=== PATIENT | female | born 1970 | race Caucasian/White ===

== ENCOUNTER 2024-11-06 07:53 | Emergency (ER) | payer OTHER ==
[~2024-11-06] VITALS: Ht 165.1 cm; Wt 95.0 kg
[2024-11-06 08:00] VITALS: O2SAT 99
[2024-11-06] MEDS: CYCLOBENZAPRINE 10MG TABLET PO ONE (09:09)
[2024-11-06 10:20] VITALS: BP 119/56; PULSE 65; RESP 18; TEMP 36.7; O2SAT 99
[2024-11-06] MEDS ORDERED: CYCL10TA21 MT (10:26)
[2024-11-08] MEDS ORDERED: SERT-112 PO (01:53)
[2024-11-08] MEDS ORDERED: BUPR-46 PO (01:53)
[2024-11-08] MEDS ORDERED: ROSUVASTATIN PO (01:53)
[2024-11-08] MEDS ORDERED: OLME20TA68 PO (01:53)
== END 2024-11-06 10:45 | disposition home or self-care (01) ==
LOC: ER 07:53
DX: M79.631 Pain in right forearm (principal); E78.00 Pure hypercholesterolemia, unspecified; I10 Essential (primary) hypertension; Z88.0 Allergy status to penicillin; Z79.899 Other long term (current) drug therapy
CPT/HCPCS: 73080; 73090; 93971; 99284; A4565

== ENCOUNTER 2025-04-08 20:50 | Emergency (ER) | payer OTHER ==
[~2025-04-08] VITALS: Ht 167.6 cm; Wt 98.0 kg
[~2025-04-08 20:50] MED LIST: CYCL10TA21 MT; OLME20TA68 PO; ROSUVASTATIN PO; SERT-112 PO
[2025-04-08 20:53] VITALS: O2SAT 98
[2025-04-08 20:55] VITALS: BP 152/56; PULSE 82; RESP 18; TEMP 36.7; O2SAT 98
[2025-04-08] MEDS: KETOROLAC 15MG/ML VIAL IM ONE (22:00)
[2025-04-08 23:29] LABS: CREATININE 0.9 mg/dL (0.6-1.0); TROPONIN I HIGH SENSITIVITY < 4 ng/L (3.0-34)
[2025-04-08 23:30] LABS: UREA NITROGEN BLOOD 16 mg/dL (9-23)
[2025-04-08 23:32] LABS: BILIRUBIN DIRECT < 0.1 mg/dL (<=3.0); BILIRUBIN TOTAL 0.2 mg/dL (0.1-1.0); PROTEIN TOTAL 7.4 g/dL (6.0-8.3)
[2025-04-08 23:35] LABS: BASOPHILS % 0.7 % (0.0-2.0); EOSINOPHILS % 3.8 % (0.0-5.0); HEMATOCRIT. 36.3 % (36.0-48.0); HEMOGLOBIN. 12.2 g/dL (12.0-16.0); LYMPHOCYTES % 28.1 % (20.0-50.0); MEAN PLATELET VOLUME 9.0 fl (7.4-10.4); MONOCYTES % 8.4 % (2.0-8.0); NEUTROPHILS % 59.0 % (40.0-76.0); PLATELET 275 x1000/uL (130-400); RED BLOOD CELL COUNT 4.41 mill/uL (4.2-5.4); RED CELL DISTRIBUTION WIDTH 13.7 % (11.6-14.6)
[2025-04-09] MEDS: CYCLOBENZAPRINE 10MG TABLET PO ONE (00:30)
[2025-04-09] MEDS: KETOROLAC 15MG/ML VIAL IM NR (00:30)
[2025-04-09] MEDS: NAPROXEN 250MG TABLET PO ONE (00:30)
[2025-04-09 00:57] LABS: ASPARTATE AMINOTRANSFERASE 14 IU/L (<34)
[2025-04-09] MEDS ORDERED: CYCL10TA21 MT (01:32)
== END 2025-04-09 01:40 | disposition home or self-care (01) ==
LOC: ER 21:02
DX: R07.1 Chest pain on breathing (principal); M54.6 Pain in thoracic spine; Z79.899 Other long term (current) drug therapy; Z88.0 Allergy status to penicillin
CPT/HCPCS: 36415; 71045; 80048; 80076; 84484; 85025; 85379; 93005; 99285; J1885